=== PATIENT | male | born 1945 | race African-American/Black ===

== ENCOUNTER 2016-12-01 10:28 | Emergency (ER) ==
--- NOTE | 2016-12-01 11:21 | PROVIDER DOCUMENTATION ---
HPI-Psychological Disorder - General Chief Complaint: Psych Stated Complaint: HULLUCINATING Time Seen by Provider: 12/01/16 10:42 Source: patient, family Allergies/Adverse Reactions: Patient Allergies Allergy/AdvReac Type Severity Reaction Status Date / Time No Known Allergies Allergy Verified 12/01/16 13:08 Home Medications: Home Medication List Medication Instructions Recorded Confirmed Last Taken Type Carbidopa/Levodopa [Sinemet 25/100] 2 each PO TID 07/12/15 12/01/16 12/01/16 13: 30 History Tamsulosin HCl [Flomax] 0.4 mg PO HS 07/12/15 12/01/16 11/30/16 21:00 History Docusate Sodium [Doc-Q-Lace] 100 mg PO DAILY 12/01/16 12/01/16 12/01/16 13:30 History Duloxetine [Cymbalta] 60 mg PO DAILY 12/01/16 12/01/16 12/01/16 13:30 History Finasteride 5 mg PO DAILY 12/01/16 12/01/16 12/01/16 13:30 History Insulin Glargine [Lantus] 10 unit SUBQ QHS 12/01/16 12/01/16 11/30/16 21:00 History LISINOpril [Prinivil] 10 mg PO DAILY 12/01/16 12/01/16 12/01/16 13:30 History Meloxicam 15 mg PO DAILY 12/01/16 12/01/16 12/01/16 13:30 History Memantine HCl [Namenda] 10 mg PO BID 12/01/16 12/01/16 12/01/16 13:30 History Mirtazapine 15 mg PO HS 12/01/16 12/01/16 11/30/16 21:00 History Pramipexole [Mirapex] 0.5 mg PO TID 12/01/16 12/01/16 12/01/16 13:30 History Quetiapine [Seroquel] 150 mg PO QHS 12/01/16 12/01/16 11/30/16 21:00 History Metformin HCl [Glucophage] 1,000 mg PO BID 12/02/16 12/02/16 Unknown History - History of Present Illness-Psych Nature of Presenting Problem: 70 yo with known dementia and parkinsons disease with increasing visual and auditory hallucinations. Feels people and animals are following and chasing him. Lives at home with . Has been increasingly combative with and left house this am . found sitting in neighbors truck. HX of prior episodes of increased confusion- last episode approx 04/2016 Onset/Duration: reports: 1 week ago Timing: reports: still present Severity: reports: moderate Psychiatric Complaints: reports: altered mental status, confused, hallucinating , hostile, paranoid Substance Use: reports: none/never Previous psych related hospitalizations?: Yes - Suicidal Ideation Clinician's estimation of suicide risk?: low risk Review of Systems - Adult - REVIEW OF SYSTEMS - ADULT Constitutional: reports: no symptoms reported Eyes: reports: no symptoms reported Ears, Nose, Mouth & Throat: reports: no symptoms reported Cardiovascular: reports: irregular heart rate Respiratory: reports: no symptoms reported Gastrointestinal: reports: no symptoms reported Genitourinary: reports: no symptoms reported Musculoskeletal: reports: no symptoms reported Integumentary: reports: no symptoms reported Neurological: reports: other (parkinsons disease, dementia) Past History - Adult - PAST MEDICAL HISTORY-ADULT Review of Records: reports: Nursing Assessment Review, Medications Reviewed Major Childhood Illnesses: reports: history unknown Cardiovascular: reports: HTN, hyperlipidemia Genitourinary: reports: kidney disease, other (prostate enlargement) Neurological: reports: Parkinson's Endocrine/Immune: reports: Diabetes Additional History: DM, HTN, hyperlipidemia, prostate enlargement, renal dz, hydrocephalus - PRIOR SURGERIES/PROCEDURES Surgical/Procedure History: reports: other (shunt right temporal lobe) - IMMUNIZATION STATUS Childhood Immunizations: See Nurse Assessment Flu Vaccine: See Nurse Assessment Physical Exam-Psych Focus - Physical Exam-Psych Initial Vital Signs Reviewed: Yes Appearance: appropriate appearance, neat, impaired recent memory, impaired remote memory Neurological: alert, normal mood/affect, calm, 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, other ( oreinted x1) Behavior/Eye Contact/Speech: cooperative, good eye contact, normal speech Thoughts/Hallucinations: auditory hallucinations, paranoid, visual hallucinations HENMT: normocephalic/atraumatic, normal ENT inspection Neck: non-tender, normal inspection Respiratory: chest non-tender, lungs clear, normal breath sounds Cardiovascular: regular rate, rhythm, no edema, no gallop, no JVD, no murmur Abdominal Exam: normal bowel sounds, non tender, soft, no organomegaly Lymphatic: no adenopathy Back Exam: normal inspection, no CVA tenderness, no vertebral tenderness Extremity: normal range of motion, non-tender, normal inspection, no pedal edema , no calf tenderness Integumentary: normal color, warm/dry Progress - PLAN OF CARE/RESULTS Progress/Plan/Lab Results: Laboratory Tests 12/01/16 12/01/16 12/01/16 11:00 11:00 11:00 WBC 8.86 RBC 4.62 L Hgb 13.8 L Hct 40.3 L MCV 87.2 MCH 29.9 MCHC 34.2 RDW Std Deviation 12.8 Plt Count 187 MPV 11.4 H Immature Gran % (Auto) 0.0 Neut % (Auto) 85.3 H Lymph % (Auto) 9.3 L Tate % (Auto) 5.3 Eos % (Auto) 0.0 Baso % (Auto) 0.1 Immature Gran # (Auto) 0.00 Neut # (Auto) 7.56 H Lymph # (Auto) 0.82 L Tate # (Auto) 0.47 Eos # (Auto) 0.00 Baso # (Auto) 0.01 Segmented Neutrophils Not Reportable Sodium 142 Potassium 4.0 Chloride 100 Carbon Dioxide 27 Anion Gap 15 BUN 22 Creatinine 0.8 Estimated GFR/1.73 m2 > 60 BUN/Creatinine Ratio 28 Glucose 127 H Calculated Osmolality 288 Calcium 9.7 Magnesium 1.5 Total Bilirubin 0.83 AST 11 ALT 13 Alkaline Phosphatase 66 Total Protein 8.1 Albumin 4.4 Globulin 3.7 Albumin/Globulin Ratio 1.2 Vitamin B12 Folate TSH Free T4 Urine Source Urine Color Urine Turbidity Urine pH Ur Specific Cooter Urine Protein Ur Glucose (Stick) Ur Ketones (Stick) Urine Blood Urine Nitrite Urine Bilirubin Urobilinogen Dipstick Urine Leukocytes Urine WBC (Auto) Urine RBC (Auto) U Epithel Cells (Auto) Urine Bacteria (Auto) Urine Opiates Screen Ur Oxycodone Screen Ur Methadone, Qual Ur Barbiturates Screen Ur Phencyclidine Scrn Ur Amphetamines Screen U Benzodiazepines Scrn Urine Cocaine Screen U Cannabinoids Screen Plasma/Serum Ethyl Alc RPR 12/01/16 12/01/16 12/01/16 11:00 11:00 11:00 WBC RBC Hgb Hct MCV MCH MCHC RDW Std Deviation Plt Count MPV Immature Gran % (Auto) Neut % (Auto) Lymph % (Auto) Tate % (Auto) Eos % (Auto) Baso % (Auto) Immature Gran # (Auto) Neut # (Auto) Lymph # (Auto) Tate # (Auto) Eos # (Auto) Baso # (Auto) Segmented Neutrophils Sodium Potassium Chloride Carbon Dioxide Anion Gap BUN Creatinine Estimated GFR/1.73 m2 BUN/Creatinine Ratio Glucose Calculated Osmolality Calcium Magnesium Total Bilirubin AST ALT Alkaline Phosphatase Total Protein Albumin Globulin Albumin/Globulin Ratio Vitamin B12 605 Folate 13.0 TSH 1.16 Free T4 1.31 Urine Source Urine Color Urine Turbidity Urine pH Ur Specific Cooter Urine Protein Ur Glucose (Stick) Ur Ketones (Stick) Urine Blood Urine Nitrite Urine Bilirubin Urobilinogen Dipstick Urine Leukocytes Urine WBC (Auto) Urine RBC (Auto) U Epithel Cells (Auto) Urine Bacteria (Auto) Urine Opiates Screen Ur Oxycodone Screen Ur Methadone, Qual Ur Barbiturates Screen Ur Phencyclidine Scrn Ur Amphetamines Screen U Benzodiazepines Scrn Urine Cocaine Screen U Cannabinoids Screen Plasma/Serum Ethyl Alc RPR NON-REACTIVE 12/01/16 12/01/16 12/01/16 11:50 15:52 16:15 WBC RBC Hgb Hct MCV MCH MCHC RDW Std Deviation Plt Count MPV Immature Gran % (Auto) Neut % (Auto) Lymph % (Auto) Tate % (Auto) Eos % (Auto) Baso % (Auto) Immature Gran # (Auto) Neut # (Auto) Lymph # (Auto) Tate # (Auto) Eos # (Auto) Baso # (Auto) Segmented Neutrophils Sodium Potassium Chloride Carbon Dioxide Anion Gap BUN Creatinine Estimated GFR/1.73 m2 BUN/Creatinine Ratio Glucose Calculated Osmolality Calcium Magnesium Total Bilirubin AST ALT Alkaline Phosphatase Total Protein Albumin Globulin Albumin/Globulin Ratio Vitamin B12 Folate TSH Free T4 Urine Source CLEAN CATCH Urine Color YELLOW Urine Turbidity CLEAR Urine pH 6.0 Ur Specific Cooter 1.026 Urine Protein 100 A Ur Glucose (Stick) NEGATIVE Ur Ketones (Stick) NEGATIVE Urine Blood NEGATIVE Urine Nitrite NEGATIVE Urine Bilirubin NEGATIVE Urobilinogen Dipstick 2 A Urine Leukocytes NEGATIVE Urine WBC (Auto) <10 Urine RBC (Auto) <10 U Epithel Cells (Auto) <10 Urine Bacteria (Auto) NEGATIVE Urine Opiates Screen NONE DETECTED Ur Oxycodone Screen NONE DETECTED Ur Methadone, Qual NONE DETECTED Ur Barbiturates Screen NONE DETECTED Ur Phencyclidine Scrn NONE DETECTED Ur Amphetamines Screen NONE DETECTED U Benzodiazepines Scrn NONE DETECTED Urine Cocaine Screen NONE DETECTED U Cannabinoids Screen NONE DETECTED Plasma/Serum Ethyl Alc RPR Orders Category Date Time Status Nursing [[facility] [place] [facility] Communication Order] DIRECTED Care 12/01/16 13:14 Active Regular Diet Diet 12/01/16 13:22 Completed CHEST-2 VIEWS [RAD] Stat Exams 12/01/16 10:39 Completed HEAD W/O CONTRAST [CT] Stat Exams 12/01/16 11:14 Completed ALCOHOL BLOOD Stat Lab 12/01/16 15:52 Completed CBC WITH ELECTRONIC DIFF [HEME] Stat Lab 12/01/16 11:00 Completed COMPREHENSIVE METABOLIC PANEL [CHEM] Stat Lab 12/01/16 11:00 Completed FOLATE Stat Lab 12/01/16 11:00 Completed FREE T4 Stat Lab 12/01/16 11:00 Completed MAGNESIUM [CHEM] Stat Lab 12/01/16 11:00 Completed RPR [SERO] Stat Lab 12/01/16 11:00 Completed TSH Stat Lab 12/01/16 11:00 Completed UDS [URINE DRUG SCREEN] Stat Lab 12/01/16 16:15 Completed URINALYSIS W/POSS RFLX CULT [URINALYSIS] Stat Lab 12/01/16 11:50 Completed VITAMIN B12 Stat Lab 12/01/16 11:00 Completed Clonidine [Catapres] Med 12/01/16 15:15 Discontinued 0.2 mg PO NOW ONE EKG [EKG] Stat Ther 12/01/16 10:39 Draft Vital Signs Temp Pulse Resp BP Pulse Ox 12/01/16 21:05 98.9 F 58 L 18 125/68 100 12/01/16 19:53 55 L 16 104/73 100 12/01/16 16:00 168/88 12/01/16 15:30 76 14 198/103 12/01/16 13:25 200/105 12/01/16 10:31 97.7 F 86 16 210/102 100 No Known Allergies Allergy (Verified 12/01/16 13:08) Carbidopa/Levodopa [Sinemet 25/100] 2 each PO TID 07/12/15 Tamsulosin HCl [Flomax] 0.4 mg PO HS 07/12/15 Docusate Sodium [Doc-Q-Lace] 100 mg PO DAILY 12/01/16 Duloxetine [Cymbalta] 60 mg PO DAILY 12/01/16 Finasteride 5 mg PO DAILY 12/01/16 Insulin Glargine [Lantus] 10 unit SUBQ QHS 12/01/16 LISINOpril [Prinivil] 10 mg PO DAILY 12/01/16 Meloxicam 15 mg PO DAILY 12/01/16 Memantine HCl [Namenda] 10 mg PO BID 12/01/16 Mirtazapine 15 mg PO HS 12/01/16 Pramipexole [Mirapex] 0.5 mg PO TID 12/01/16 Quetiapine [Seroquel] 150 mg PO QHS 12/01/16 Metformin HCl [Glucophage] 1,000 mg PO BID 12/02/16 Laboratory 12/01/16 12/01/16 12/01/16 16:15 15:52 11:50 WBC RBC Hgb Hct MCV MCH MCHC RDW Std Deviation Plt Count MPV Immature Gran % (Auto) Neut % (Auto) Lymph % (Auto) Tate % (Auto) Eos % (Auto) Baso % (Auto) Immature Gran # (Auto) Neut # (Auto) Lymph # (Auto) Tate # (Auto) Eos # (Auto) Baso # (Auto) Segmented Neutrophils Sodium Potassium Chloride Carbon Dioxide Anion Gap BUN Creatinine Estimated GFR/1.73 m2 BUN/Creatinine Ratio Glucose Calculated Osmolality Calcium Magnesium Total Bilirubin AST ALT Alkaline Phosphatase Total Protein Albumin Globulin Albumin/Globulin Ratio Vitamin B12 Folate TSH Free T4 Urine Source CLEAN CATCH Urine Color YELLOW Urine Turbidity CLEAR Urine pH 6.0 Ur Specific Cooter 1.026 Urine Protein 100 A Ur Glucose (Stick) NEGATIVE Ur Ketones (Stick) NEGATIVE Urine Blood NEGATIVE Urine Nitrite NEGATIVE Urine Bilirubin NEGATIVE Urobilinogen Dipstick 2 A Urine Leukocytes NEGATIVE Urine WBC (Auto) <10 Urine RBC (Auto) <10 U Epithel Cells (Auto) <10 Urine Bacteria (Auto) NEGATIVE Urine Opiates Screen NONE DETECTED Ur Oxycodone Screen NONE DETECTED Ur Methadone, Qual NONE DETECTED Ur Barbiturates Screen NONE DETECTED Ur Phencyclidine Scrn NONE DETECTED Ur Amphetamines Screen NONE DETECTED U Benzodiazepines Scrn NONE DETECTED Urine Cocaine Screen NONE DETECTED U Cannabinoids Screen NONE DETECTED Plasma/Serum Ethyl Alc RPR 12/01/16 12/01/16 12/01/16 11:00 11:00 11:00 WBC RBC Hgb Hct MCV MCH MCHC RDW Std Deviation Plt Count MPV Immature Gran % (Auto) Neut % (Auto) Lymph % (Auto) Tate % (Auto) Eos % (Auto) Baso % (Auto) Immature Gran # (Auto) Neut # (Auto) Lymph # (Auto) Tate # (Auto) Eos # (Auto) Baso # (Auto) Segmented Neutrophils Sodium Potassium Chloride Carbon Dioxide Anion Gap BUN Creatinine Estimated GFR/1.73 m2 BUN/Creatinine Ratio Glucose Calculated Osmolality Calcium Magnesium Total Bilirubin AST ALT Alkaline Phosphatase Total Protein Albumin Globulin Albumin/Globulin Ratio Vitamin B12 605 Folate 13.0 TSH 1.16 Free T4 1.31 Urine Source Urine Color Urine Turbidity Urine pH Ur Specific Cooter Urine Protein Ur Glucose (Stick) Ur Ketones (Stick) Urine Blood Urine Nitrite Urine Bilirubin Urobilinogen Dipstick Urine Leukocytes Urine WBC (Auto) Urine RBC (Auto) U Epithel Cells (Auto) Urine Bacteria (Auto) Urine Opiates Screen Ur Oxycodone Screen Ur Methadone, Qual Ur Barbiturates Screen Ur Phencyclidine Scrn Ur Amphetamines Screen U Benzodiazepines Scrn Urine Cocaine Screen U Cannabinoids Screen Plasma/Serum Ethyl Alc RPR NON-REACTIVE 12/01/16 12/01/16 12/01/16 11:00 11:00 11:00 WBC 8.86 RBC 4.62 L Hgb 13.8 L Hct 40.3 L MCV 87.2 MCH 29.9 MCHC 34.2 RDW Std Deviation 12.8 Plt Count 187 MPV 11.4 H Immature Gran % (Auto) 0.0 Neut % (Auto) 85.3 H Lymph % (Auto) 9.3 L Tate % (Auto) 5.3 Eos % (Auto) 0.0 Baso % (Auto) 0.1 Immature Gran # (Auto) 0.00 Neut # (Auto) 7.56 H Lymph # (Auto) 0.82 L Tate # (Auto) 0.47 Eos # (Auto) 0.00 Baso # (Auto) 0.01 Segmented Neutrophils Not Reportable Sodium 142 Potassium 4.0 Chloride 100 Carbon Dioxide 27 Anion Gap 15 BUN 22 Creatinine 0.8 Estimated GFR/1.73 m2 > 60 BUN/Creatinine Ratio 28 Glucose 127 H Calculated Osmolality 288 Calcium 9.7 Magnesium 1.5 Total Bilirubin 0.83 AST 11 ALT 13 Alkaline Phosphatase 66 Total Protein 8.1 Albumin 4.4 Globulin 3.7 Albumin/Globulin Ratio 1.2 Vitamin B12 Folate TSH Free T4 Urine Source Urine Color Urine Turbidity Urine pH Ur Specific Cooter Urine Protein Ur Glucose (Stick) Ur Ketones (Stick) Urine Blood Urine Nitrite Urine Bilirubin Urobilinogen Dipstick Urine Leukocytes Urine WBC (Auto) Urine RBC (Auto) U Epithel Cells (Auto) Urine Bacteria (Auto) Urine Opiates Screen Ur Oxycodone Screen Ur Methadone, Qual Ur Barbiturates Screen Ur Phencyclidine Scrn Ur Amphetamines Screen U Benzodiazepines Scrn Urine Cocaine Screen U Cannabinoids Screen Plasma/Serum Ethyl Alc RPR - PSYCHIATRIC Medically clear for psych eval and/or transfer [facility] Yes - EKG 2 Time of EKG reading by physician:: 14:55 EKG Read and Signed by:: Maryam Vivar Rate: 70 Rhythm: nsr [place]: left QRS: poor R wave progression ST Wave: non-specific ST changes - XRAY 1 XRAY Study: Chest (no acute changes) - CT/MRI 1 CT Study: Head (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
[2016-12-01 11:31] LABS: AGAP 15; ALBUMIN 4.4 g/dL (3.5-5.0); ALKALINE PHOSPHATASE 66 U/L (32-122); BASO% 0.1 % (0.0-0.8); BUN 22 mg/dL (8-22); CALCIUM 9.7 mg/dL (8.8-10.2); CHLORIDE 100 mmol/L (98-107); COSMO 288; GOT 11 U/L (10-34); GPT 13 U/L (10-44); HEMATOCRIT 40.3 % (42.0-52.0); HEMOGLOBIN 13.8 g/dL (14.0-18.0); LYMPH# 0.82 X1000 (1.2-3.4); LYMPH% 9.3 % (20.5-51.1); MCH 29.9 PG (27-31); MCHC 34.2 g/dL (33-37); MCV 87.2 FL (81-99); MONO# 0.47 X1000 (0.11-0.59); MONO% 5.3 % (1.7-9.3); MPV 11.4 FL (7.4-10.4); NEUT% 85.3 % (42.2-75.2); PLT 187 X1000 (130-400); RBC 4.62 XMIL (4.7-6.1); SODIUM 142 mmol/L (136-145); TCO2 27 mmol/L (25-35); TOTAL BILIRUBIN 0.83 mg/dL (0.20-1.00); TOTAL PROTEIN 8.1 g/dL (6.3-8.3)
[2016-12-01 11:39] LABS: MANUAL DIFF NEEDED? NO
[2016-12-01 12:09] LABS: FREE T4 1.31 ng/dL (0.93-1.70)
--- NOTE | 2016-12-01 12:43 | Diag Imaging Result Document ---
PROCEDURE NAME: HEAD W/O CONTRAST - 12/01/2016 CT HEAD WITHOUT CONTRAST: COMPARISON: 07/12/2015. FINDINGS: A right posterior approach MEDICAL DOCTOR shunt catheter is in stable position. The ventricles are mildly prominent but they are stable. This is likely due to atrophy. There is nothing specific for acute hydrocephalus. There is extensive patchy low attenuation in the periventricular and subcortical white matter suggesting microangiopathy, stable. There is no definite acute infarct given the limited sensitivity of CT versus MRI. There is no discrete intracranial mass, mass effect, or intracranial hemorrhage. Surrounding soft tissues and bony structures are essentially unremarkable. IMPRESSION: 1. Stable MEDICAL DOCTOR shunt catheter and stable ventricles as described. 2. Other incidental/nonacute findings detailed above. No definite acute pathology.
[2016-12-01 13:15] LABS: URINE CULTURE NEEDED? NO; URINE MICRO REVIEW NEEDED? NO; URINE SOURCE CLEAN CATCH
[2016-12-01 13:19] LABS: BILIRUBIN URINE NEGATIVE (NEGATIVE); BLOOD URINE NEGATIVE (NEGATIVE); COLOR YELLOW; GLUCOSE URINE NEGATIVE (NEGATIVE); LEUKOCYTES URINE NEGATIVE (NEGATIVE); NITRITE URINE NEGATIVE (NEGATIVE); PROTEIN URINE 100 mg/dL (NEGATIVE); SP GRAVITY URINE 1.026; TURBIDITY URINE CLEAR (CLEAR); UROBILINOGEN URINE 2 mg/dL (NORMAL)
[2016-12-01 13:20] LABS: UR EPITHELIAL CELLS <10 /HPF (<10); URINE BACTERIA NEGATIVE /HPF; URINE RBC <10 /HPF (<10); URINE WBC <10 /HPF (<10)
--- NOTE | 2016-12-01 14:33 | Diag Imaging Result Document ---
PROCEDURE NAME: CHEST-2 VIEWS - 12/01/2016 PA AND LATERAL RADIOGRAPH OF THE CHEST: COMPARISON: 07/12/2015. FINDINGS: The lungs are clear. There is no definite pleural fluid collection. There is a stable- appearing ACCOUNT EXECUTIVE TRAINEE shunt catheter on the right. Cardiac silhouette and central vasculature are unremarkable. IMPRESSION: No evidence of acute pathology.
[2016-12-01] MEDS ORDERED: CATAPRES PO ONE (15:15)
[2016-12-01 16:30] LABS: UR AMPHETAMINES QUAL NONE DETECTED (NONE DETECT); UR BARBITUATES QUAL NONE DETECTED (NONE DETECT); UR BENZODIAZEPIN QUAL NONE DETECTED (NONE DETECT); UR CANNABINOIDS QUAL NONE DETECTED (NONE DETECT); UR COCAINE QUAL NONE DETECTED (NONE DETECT); UR METHADONE QUAL NONE DETECTED (NONE DETECT); UR OPIATES QUAL NONE DETECTED (NONE DETECT); UR OXYCODONE QUAL NONE DETECTED (NONE DETECT); UR PCP QUAL NONE DETECTED (NONE DETECT)
[2016-12-01 21:12] VITALS: BP 125/68
--- NOTE | 2016-12-02 05:33 | EKG Report ---
Test Performed on : 12/01/2016 2:51:17 PM Test Reason : probate court medical clearance Blood Pressure : / mmHG Vent. Rate : 070 BPM Atrial Rate : 070 BPM P-R Int : 208 ms QRS Dur : 092 ms QT Int : 386 ms P-R-T Axes : 048 -40 026 degrees QTc Int : 416 ms Normal sinus rhythm. Left axis deviation Cannot rule out Anterior infarct , age undetermined Abnormal ECG When compared with ECG of 12-JUL-2015 17:02, No significant change was found Unconfirmed Result
== END 2016-12-01 21:10 ==
LOC: ED 10:28
DX: F03.91 Unspecified dementia, unspecified severity, with behavioral disturbance (principal); R41.82 Altered mental status, unspecified; R41.0 Disorientation, unspecified; R45.5 Hostility; R44.0 Auditory hallucinations; R44.1 Visual hallucinations; I10 Essential (primary) hypertension; E78.5 Hyperlipidemia, unspecified; Z79.899 Other long term (current) drug therapy; N40.0 Benign prostatic hyperplasia without lower urinary tract symptoms; E11.9 Type 2 diabetes mellitus without complications; G20 Parkinson's disease; Z79.4 Long term (current) use of insulin; Z98.2 Presence of cerebrospinal fluid drainage device
CPT/HCPCS: 36415; 70450; 71020; 80053; 81001; 82607; 82746; 83735; 84439; 84443; 85025; 86592; 93005; G0480; 80320; 80324; 80345; 80346; 80349; 80353; 80358; 80361; 80365; 83992